=== PATIENT | male | born 2000 | race Caucasian/White ===

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

== ENCOUNTER 2023-04-04 23:14 | Emergency (ER) | payer OTHER ==
[~2023-04-04] VITALS: Ht 167.6 cm; Wt 53.5 kg
[2023-04-04 23:47] VITALS: BP 133/72; PULSE 80; RESP 22; TEMP 96.6; O2SAT 96
[2023-04-05 03:13] VITALS: BP 112/73; PULSE 68; RESP 14; O2SAT 100
[2023-04-05] MEDS ORDERED: ATA25 PO (03:50)
== END 2023-04-05 04:18 | disposition home or self-care (01) ==
LOC: MED 23:14
DX: F41.0 Panic disorder [episodic paroxysmal anxiety] (principal); R10.9 Unspecified abdominal pain; J45.909 Unspecified asthma, uncomplicated; Z79.899 Other long term (current) drug therapy
CPT/HCPCS: 99283; Q0163